=== PATIENT | female | born 1935 | race Caucasian/White ===

== ENCOUNTER 2020-05-21 01:01 | Emergency (ER) | payer OTHER ==
[~2020-05-21] VITALS: Ht 157.4 cm; Wt 77.1 kg
[~2020-05-21 01:01] MED LIST: AMLODIPINE BESYL5 MG PO; AMLODIPINE5 MG PO; APAP/OXYCODONE1 TA2 PO; ASPIRIN EC325 MG PO; ASPIRIN EC81 MG PO; CRESTOR10 MG PO; FUROSEMIDE10 MG/ML PO; HYDR25T PO; HYDROCHLOROTHIA25 MG PO; K-Dur 20MEQ20 MEQ PO; LIPITOR40 MG PO; LISINOPRIL20 MG PO; LISINOPRIL40 MG PO; METOPROLOL1 MG/ML IV; METOPROLOL100 MG PO; PRILOSEC20 MG PO; SPIRIVA18 MCG PO; TOPROL XL100 MG PO; VENTOLIN H0.09 MG/AC INH; Zestril,Prinivi40 MG PO
[2020-05-21 01:45] LABS: BASO % 0.5 % (0.0-1.0); EOS # 0.1 10*3/uL (0.0-0.4); EOS % 1.1 % (1.0-4.0); HEMATOCRIT 42.1 % (37.0-47.0); LYMPH # 0.7 10*3/uL (1.3-4.4); LYMPH % 11.4 % (27.0-41.0); MEAN CELL VOLUME 96.1 fl (81.0-99.0); MEAN CORPUSCULAR HGB 30.4 pg (27.0-31.0); MEAN CORPUSCULAR HGB CONC 31.6 g/dl (33.0-37.0); MEAN PLATELET VOLUME 11.1 fl (9.6-12.3); MONO # 0.7 10*3/uL (0.1-1.0); MONO % 10.8 % (3.0-9.0); NEUT # 4.9 10*3/uL (2.3-7.9); PLATELET COUNT AUTOMATED 173 10*3/uL (130-400); RED BLOOD COUNT 4.38 10*6/uL (4.10-5.10); WHITE BLOOD COUNT 6.5 10*3/uL (4.8-10.8)
[2020-05-21 02:03] LABS: ALBUMIN 3.2 gm/dl (3.1-4.5); ALKALINE PHOSPHATASE 190 U/L (45-117); BUN 11 mg/dl (7-24); CHLORIDE 107 mmol/L (98-107); CREATININE 0.65 mg/dL (0.55-1.02); POTASSIUM 3.8 mmol/L (3.5-5.1); SGOT/AST 14 IU/L (3-35); SGPT/ALT 25 U/L (12-78); SODIUM 141 mmol/L (136-145); TOTAL PROTEIN 6.9 gm/dL (6.4-8.2); TROPONIN I < 0.015 ng/ml (<0.045)
[2020-05-21 02:12] LABS: BILIRUBIN Negative; BLOOD Negative (Negative); CLARITY Clear (Clear); COLOR Yellow (Yellow); GLUCOSE Negative; KETONE Negative; PH 6.5 (4.5-8.0); SPECIFIC GRAVITY 1.015 (1.001-1.030); UROBILINOGEN 0.2 E.U./dl (0.0-1.0)
[2020-05-21 02:13] LABS: LEUKO ESTERASE Negative (Negative); NITRITE Negative (Negative)
[2020-05-21] MEDS ORDERED: ATIVAN0.5 MG PO (02:56)
== END 2020-05-21 03:15 | disposition other institution (70) ==
LOC: ED 01:01
PROVIDERS: Emergency Medicine
DX: F03.90 Unspecified dementia, unspecified severity, without behavioral disturbance, psychotic disturbance, mood disturbance, and anxiety (principal); R45.1 Restlessness and agitation; Z79.899 Other long term (current) drug therapy; Z79.82 Long term (current) use of aspirin